=== PATIENT | female | born 1970 | race Caucasian/White ===

== ENCOUNTER 2016-11-01 19:55 | Emergency (ER) | payer MEDICAID ==
--- NOTE | 2016-11-01 20:30 | ED Physician Chart ---
Chief Complaint/HPI - Patient Information Date Seen:: 11/01/16 Time Seen:: 06:15 Chief Complaint:: skin rash x 2 days History of Present Illness:: pt with 2 days of red bumps that itch on the left arm. has no known new exposures but possibly bug bites? there are no other sx of any kind. never happened before. no antecedent hx of travel, new bed, new pets but has a cat with fleas occassionally. no other fam members effected. Allergies:: Allergies Allergy/AdvReac Type Severity Reaction Status Date / Time acetaminophen Allergy Verified 01/20/16 17:20 [From Tylenol-Codeine #3] codeine phosphate Allergy Verified 01/20/16 17:20 [From Tylenol-Codeine #3] Vitals:: Vital Signs - 8 hr 11/01/16 20:00 Temp 97.7 F HR 100 RR 18 BP 136/72 O2 Sat % 98 Historian:: Patient Review:: Nurse's Note Reviewed Review of Systems - Review of Systems General/Constitutional: Other (all ROS is otherwise negative.) Past Medical History - Past Medical History Obtainable: Yes Past Medical History: No significant medical hx Family History: HTN, Cancer Social History: Non Smoker, No Alcohol, No Drug Use, , Employed Surgical History: Hysterectomy (anxious) Family Medical History - Family Member Father History Unknown: Yes Hx Family Cancer: Yes Hx Family Hypertension: Yes Hx Family Diabetes: Yes Other Medical History: [place] Labs/Radiology/EKG Results - Lab Results Results: none ED Septic Shock - . Is Septic Shock (SBP<90, OR Lactate>4 mmol\L) present?: No - <6hrs of presentation: Vital Signs: Vital Signs - 8 hr 11/01/16 20:00 Temp 97.7 F HR 100 RR 18 BP 136/72 O2 Sat % 98 Reassessment (Disposition) - Reassessment Reassessment Condition:: Unchanged - Diagnosis Diagnosis:: bug bites with local inflammatory reaction - Aftercare/Follow up Instructions Aftercare/Follow-Up Instructions:: Refer to Discharge Instructions - Patient Disposition Discharge/Transfer:: Home Condition at Disposition:: Stable ED Discharge Plan - Patient Disposition Admit/Discharge/Transfer: PT DISCHARGED HOME Condition at Disposition: Stable Instructions: Insect Bite, [id number]
== END 2016-11-01 20:35 | disposition home or self-care (01) ==
LOC: ER 19:55
DX: L08.9 Local infection of the skin and subcutaneous tissue, unspecified (principal); S40.862A Insect bite (nonvenomous) of left upper arm, initial encounter; Z88.6 Allergy status to analgesic agent; W57.XXXA Bitten or stung by nonvenomous insect and other nonvenomous arthropods, initial encounter; Y93.89 Activity, other specified; Y92.89 Other specified places as the place of occurrence of the external cause; Y99.8 Other external cause status
CPT/HCPCS: Z7502

== ENCOUNTER 2017-09-14 10:59 | Emergency (ER) | payer MEDICAID ==
[2017-09-14] MEDS ORDERED: Morphine Sulfate 4 mg/mL 1mL Syr IVP ONE (11:20)
[2017-09-14] MEDS ORDERED: Sodium Chloride 0.9% 1,000 ML IV ONE (11:20)
[2017-09-14] MEDS ORDERED: Morphine Sulfate 2 mg/mL 1mL Syr IVP ONE (11:20)
[2017-09-14] MEDS ORDERED: Morphine Sulfate 4 mg/mL 1mL Syr ONE (11:22)
--- NOTE | 2017-09-14 11:26 | ED Physician Chart ---
ED Chief Complaint/HPI - Patient Information Date Seen:: 09/14/17 Time Seen:: 11:00 Chief Complaint:: Dysuria History of Present Illness:: onset x 4 days of dysuria, hesitancy, polyuria, intermittent, crampy pelvic pain , and diarrheax 3; pt denies trauma, H/As, S/T, neck pain, C/P, SOB, Abd. pain, A/N/V/C, VD, VB, fever, chills, or hematuria; pt is eating regular diet and is urinating well; pt last urinated one hour [employer] AD[employer]; pt is post-menopausal x 7 years; pt denies Allergies:: Allergies Allergy/AdvReac Type Severity Reaction Status Date / Time codeine phosphate Allergy Verified 01/20/16 17:20 [From Tylenol-Codeine #3] Historian:: Patient Review:: Nurse's Note Reviewed ED Review of Systems - Review of Systems General/Constitutional: No fever, No chills, No weight loss, No weakness, No diaphoresis, No edema, No loss of appetite Skin: No skin lesions, No rash, No bruising Head: No headache, No light-headedness Eyes: No loss of vision, No pain, No diplopia ENT: No earache, No nasal drainage, No sore throat, No tinnitus Neck: No neck pain, No swelling, No thyromegaly, No stiffness, No mass noted Cardio Vascular: No chest pain, No palpitations, No PND, No orthopnea, No edema Pulmonary: No SOB, No cough, No sputum, No wheezing GI: Nausea, Vomiting, Diarrhea, No pain, No melena, No hematochezia, No constipation, No hematemesis G/U: Dysuria, Frequency, No hematuria, No nacturia Intensive Care Nurse: No vaginal discharge, No abnormal vaginal bleed, No contraction Musculoskeletal: No bone or joint pain, No back pain, No muscle pain Endocrine: No polyuria, No polydipsia Psychiatric: No prior psych history, No depression, No anxiety, No suicidal ideation, No homicidal ideation, No auditory hallucination, No visual hallucination Hematopoietic: No bruising, No lymphadenopathy Allergic/Immuno: No urticaria, No angioedema Neurological: No syncope, No focal symptoms, No weakness, No paresthesia, No headache, No seizure, No dizziness, No confusion, No vertigo ED Past Medical History - Past Medical History Obtainable: Yes Past Medical History: Other (UTI) Family History: HTN Social History: Non Smoker, No Alcohol, No Drug Use, Surgical History: Appendectomy, Hysterectomy Psychiatricy History: None Medication: Reviewed Family Medical History - Family Member Father History Unknown: Yes Hx Family Cancer: Yes Hx Family Hypertension: Yes Hx Family Diabetes: Yes ED Physical Exam - Physical Examination General/Constitutional: Awake, Well-developed, well-nourished, Alert, No distress, GCS 15, Non-toxic appearing, Ambulatory Head: Atraumatic Eyes: Lids, conjuctiva normal, PERRL, EOMI Skin: Nl inspection, No rash, No skin lesions, No ecchymosis, Well hydrated, No lymphadenopathy ENMT: External ears, nose nl, TM canals nl, Nasal exam nl, Lips, teeth, gums nl , Oropharynx nl, Tonsils nl Neck: Nontender, Full ROM w/o pain, No JVD, No nuchal rigidity, No bruit, No mass, No stridor Other Neck comments:: supple; no meningeal signs; no cervical tenderness Respiratory: Nl effort/Exclusion, Clear to Auscultation, No Wheeze/Rhonchi/Rales Cardio Vascular: RRR, No murmur, gallop, rubs, NL S1 S2, Carotid/Femoral/Distal pulses equal bilaterally GI: No tenderness/rebounding/guarding, No organomegaly, No hernia, Normal BS's, Nondistended, No mass/bruits, No McBurney tenderness, Rectum exam nl Other GI comments:: no pulsatile masses : No CVA tenderness Other comments:: /Pelvic Exams: deferred by pt Extremities: No tenderness or effusion, Full ROM, normal strength in all extremities, No edema, Normal digits & nails Neuro/Psych: Alert/oriented, DTR's symmetric, Normal sensory exam, Normal motor strength, Judgement/insight normal, Mood normal, Normal gait, No focal deficits Misc: Normal back, No paraspinal tenderness ED Labs/Radiology/EKG Results - Lab Results Comments:: U/A: + Hematuria; + Pyuria ED Septic Shock - . Is Septic Shock (SBP<90, OR Lactate>4 mmol\L) present?: No ED Reassessment (Disposition) - Reassessment Reassessment:: pt tolerated po fluids well in ER; pt is asymptomatic upon discharge Reassessment Condition:: Improved - Diagnosis Diagnosis:: Dx; Dysuria; Polyuria; Hematuria; Nephrolithiasis; Ureterolithiasis; Cystitis; UTI; N/V/D; AGE; Gastritis; Fever; Gastroenteritis; Abdominal Pain-resolved; Abdominal Pain; Possible Renal Calculi - Aftercare/Follow up Instructions Aftercare/Follow-Up Instructions:: Counseled pt regarding lab results/diagnosis & need follow up, Refer to Discharge Instructions, Counseled pt & family regarding lab results/diagnosis & need follow up Medication Prescribed:: Macrobid 100mg po bid x 10 days; Pyridium 100mg po tid x 5 days prn dysuria; Tylenol 500mg po qid prn pain; Clear liquids; fluids, especially citric acid juices; Urine Strainer to Strain all Urine - Patient Disposition Discharge/Transfer:: Home Condition at Disposition:: Stable, Improved (RTER prn if existing s/s reoccur and/or get worse and/or any other new s/s occur; ACIs given for all above Dx; Refer to GI/ Specialists/Firewall Security Engineer [facility]; F/U with PMD in one day or prn; Strain all Urine; RTER prn if concerned) ED Discharge Plan - Patient Disposition Admit/Discharge/Transfer: PT DISCHARGED HOME Condition at Disposition: Stable Prescriptions: Nitrofurantoin Monohyd/M-Cryst [Macrobid 100 mg Capsule] 100 mg PO TID 10 Days # 20 cap Instructions: Urinary Tract Infection
[2017-09-14 11:35] LABS: % BASOPHILS 0.4 % (0.0-2.0); % EOSINOPHILS 1.6 % (0.0-5.0); % LYMPHOCYTES 27.7 % (20.0-50.0); % MONOCYTES 6.7 % (2.0-10.0); % NEUTROPHILS 63.6 % (40.0-80.0); EOSINOPHILE ABSOLUTE 0.1 Th/cmm (0.1-0.4); HEMOGLOBIN 14.7 gm/dL (12-16); LYMPHOCYTE ABSOLUTE 1.2 Th/cmm (1.5-3.0); MEAN CELL VOLUME 86.7 fl (81-100); MEAN CORPUSCULAR HGB CONC 33.4 pg (28.0-36.0); MEAN PLATELET VOLUME 7.9 fl; MONOCYTE ABSOLUTE 0.3 Th/cmm (0.3-1.0); NEUTROPHILE ABSOLUTE 2.8 Th/cmm (1.8-8.0); PLATELET COUNT 225 Th/cmm (150-400); RED BLOOD COUNT 5.07 Mil/cmm (3.80-5.10); RED CELL DISTRIBUTION WIDTH 11.7 % (11.5-20.0); WHITE BLOOD COUNT 4.4 Th/cmm (4.8-10.8)
[2017-09-14 11:37] LABS: URINE MICROSCOPIC INDICATED? YES; URINE SOURCE CLEAN C
[2017-09-14 11:38] LABS: URINE BILIRUBIN NEGATIVE (NEGATIVE); URINE BLOOD TRACE (NEGATIVE); URINE GLUCOSE (UA) NEGATIVE (NEGATIVE); URINE KETONE NEGATIVE (NEGATIVE); URINE LEUKOCYTE ESTERASE SMALL (NEGATIVE); URINE NITRATE NEGATIVE (NEGATIVE); URINE PH 6.5 (4.6 - 8.0); URINE PROTEIN NEGATIVE (NEGATIVE); URINE UROBILINOGEN 0.2 E.U./dL (0.2 - 1.0)
[2017-09-14 11:40] LABS: URINE CLARITY CLEAR (CLEAR); URINE COLOR YELLOW
[2017-09-14 11:44] LABS: URINE BACTERIA 1+ /hpf (NONE SEEN); URINE EPITHELIAL CELLS MODERATE /lpf (FEW)
[2017-09-14 11:52] LABS: AMYLASE SERUM 25 U/L (29-103); ANION GAP 10.8 (7.0-16.0); BUN - UREA NITROGEN 17 mg/dL (7-25); CALCIUM SERUM 9.7 mg/dL (8.6-10.3); CARBON DIOXIDE 26.9 mEq/L (21.0-31.0); CHLORIDE 106 mEq/L (98-107); CREATININE - SERUM 0.5 mg/dL (0.6-1.2); GFR AFRICAN-AMERICAN > 60.0 ml/min (>90); GFR NON AFRICAN-AMERICAN > 60.0 ml/min; GLUCOSE 93 mg/dL (70-105); LIPASE 20 U/L (11-82); POTASSIUM SERUM 3.7 mEq/L (3.5-5.1); SODIUM SERUM 140 mEq/L (136-145)
[2017-09-14] MEDS ORDERED: cefTRIAXone 1 GM in Sodium Chloride 0.9% 50 ML IV ONE (12:09)
== END 2017-09-14 13:43 | disposition home or self-care (01) ==
LOC: ER 10:59
DX: K52.9 Noninfective gastroenteritis and colitis, unspecified (principal); N20.2 Calculus of kidney with calculus of ureter; N39.0 Urinary tract infection, site not specified; Z90.710 Acquired absence of both cervix and uterus; Z90.49 Acquired absence of other specified parts of digestive tract; Z88.5 Allergy status to narcotic agent
CPT/HCPCS: 99284; 96365; 96375; 36415; 85025; 87086; 81001; 82150; 84703; 81025; 83690; 80048; J2405; J0696; J7030; Z7502